=== PATIENT | female | born 1995 | race African-American/Black ===

== ENCOUNTER 2019-03-06 17:00 | Emergency (ER) | payer OTHER ==
[2019-03-06 18:43] LABS: #Basophils 0.1 thou/uL (0.0-0.2); #Eosinphils 0.1 thou/uL (0.0-0.7); #Lymphocytes 1.2 thou/uL (1.20-3.40); #Neutrophils 10.5 thou/uL (1.40-6.50); %Basophils 0.6 % (0.0-1.0); %Eosinophils 0.6 % (0.0-10.0); %Lymphocytes 9.2 % (21.0-51.0); %Monocytes 7.9 % (0.0-10.0); %Neutrophils 81.7 % (42.0-75.0); Anisocytosis SLIGHT = 6-15 cells (100X) (0-5/hpf); Elliptocytes SLIGHT = 2-5 cells (100X) (0-1/hpf); Hypochromia MODERATE=16-30 cells (100X) (0-5/hpf); MDiff Complete? YES; Macrocytosis SLIGHT = 6-15 cells (100X) (0-5/hpf); Mean Corpuscular HGB CONC 30.2 g/dL (32.0-36.0); Mean Corpuscular Hemoglobin 24.1 pg (27.0-31.0); Mean Corpuscular Volume 79.8 fL (78.0-98.0); Mean Platelet Volume 6.3 fL (7.4-10.4); Microcytosis SLIGHT = 6-15 cells (100X) (0-5/hpf); Platelet Count 281 thou/uL (130-400); Platelet Morphology Comment Appears Adequate; Red Blood Cell (RBC) Count 2.89 mill/uL (4.20-5.40); Reflex for Review?? YES; Tear Drops SLIGHT = 2-5 cells (100X) (0-1/hpf); White Blood Cell (WBC) Count 12.8 thou/uL (4.8-10.8)
[2019-03-06 18:45] LABS: ALT (SGPT) 10 U/L (8-55); AST (SGOT) 10 U/L (5-34); Albumin 2.9 g/dL (3.5-5.0); Alkaline Phosphatase 106 U/L (40-150); Anion Gap 14 mmol/L (10-20); BUN (Urea Nitrogen) 7 mg/dL (7.0-18.7); Bilirubin, Total 0.5 mg/dL (0.2-1.2); Calc. Creatinine Clearance 0 mL/min (70-130); Calcium 8.7 mg/dL (7.8-10.44); Carbon Dioxide 24 mmol/L (22-29); Chloride 107 mmol/L (98-107); Estimated GFR-MDRD Greater than 90; Globulin 3.2 g/dL (2.4-3.5); Glucose 74 mg/dL (70-105); Lipase 13 U/L (8-78); Protein, Total 6.1 g/dL (6.0-8.3); Sodium 142 mmol/L (136-145)
[2019-03-06 18:48] LABS: Potassium 2.9 mmol/L (3.5-5.1)
[2019-03-06] MEDS ORDERED: Potassium Chloride 20 MEQ TAB ONE (18:58)
--- NOTE | 2019-03-06 19:04 | CT ---
EXAM: CT orbits with IV contrast PROVIDED CLINICAL HISTORY: Right eye swelling COMPARISON: None FINDINGS: The globes and other orbital contents bilaterally appear normal. There is minimal mucosal thickening involving the ethmoid air cells. There is near-total opacification of both maxillary sinuses. No evidence for fracture or other acute osseous abnormality. IMPRESSION: No evidence for post septal orbital cellulitis.
--- NOTE | 2019-03-06 19:24 | CT ---
CT ABDOMEN AND PELVIS WITH CONTRAST: 03/06/19 HISTORY: Fever after . COMPARISON: CT abdomen and pelvis 12/20/14. FINDINGS: The lung bases are clear. No pericardial effusion. Mild bilateral hydroureteronephrosis most likely sequela of mass effect from the enlarged uterus. Spleen, liver, pancreas unremarkable. No dilated loops of large or small bowel. Mild diastas is recti. No hematoma. No significant free fluid in the pelvis. The aortoiliac contour is normal. Punctate focus of gas with a small adjacent fluid collection in the expected location of the lower u terine segment. The gonadal veins are dilated. IMPRESSION: 1. Expected postoperative findings with small seroma and punctate focus area of gas in the lower uterine segment from recent section. No significant hemorrhage. No significant free fluid i n the pelvis. 2. 2. Moderate bilateral hydroureteronephrosis due to enlarged uterus. POS: HOME
[2019-03-06 19:47] LABS: Bilirubin Negative (Negative); Blood, Urine Moderate (Negative); Clarity Clear (Clear); Glucose, Urine (Dipstick) Negative (Negative); Leukocyte Small (Negative); Nitrite Negative (Negative); Protein, Urine (Dipstick) Negative (Neg-Trace); Urobilinogen 0.2 mg/dL (Less than 2)
[2019-03-06 19:50] LABS: Bacteria/HPF 1+ HPF (None Seen); Squamous Epithelial 0-3 HPF (0-3); Trichomonas/HPF 1+ HPF (None Seen); WBC/HPF 0-3 HPF (0-3)
== END 2019-03-06 20:20 | disposition home or self-care (01) ==
LOC: SCSER 17:00
DX: L03.213 Periorbital cellulitis (principal)
CPT/HCPCS: 70481; 74177; 80053; 81003; 81015; 83690; 85025; 85060; 87086

== ENCOUNTER 2021-09-28 09:29 | Outpatient (CLI) | payer MEDICAID | END 2021-09-28 09:30 | disposition home or self-care (01) | LOC: BICULT 09:29 | PROVIDERS: ATTEND Nurse Practitioner Women's Health | DX: R10.2 Pelvic and perineal pain (principal) | CPT/HCPCS: 76856 ==